=== PATIENT | female | born 1995 | race Caucasian/White ===

== ENCOUNTER → 2020-04-20 08:30 | Outpatient (CLI) | payer OTHER, SELFPAY ==
[2020-04-21 16:14] LABS: Covid-19 Nasal PCR Sendout Lex NOT DETECTED
== END ==
PROVIDERS: PCP Physician Assistant; Visit Provider Internal Medicine Adolescent Medicine
DX: Z03.818 Encounter for observation for suspected exposure to other biological agents ruled out (principal)
CPT/HCPCS: U0004

== ENCOUNTER 2021-01-06 16:41 | Emergency (ER) | payer OTHER, SELFPAY ==
[2021-01-06 16:43] VITALS: BP 132/80; PULSE 58; RESP 19; TEMP 36.9; O2SAT 100; BMI 29.9
[2021-01-06 17:00] VITALS: BP 132/80; PULSE 58; RESP 19; TEMP 36.9; O2SAT 100
[2021-01-06 17:06] LABS: Apearance,Urine Clear (Clear); Bilirubin,Urine Negative (Negative); Blood, Urine Negative (Negative); Color,Urine Yellow (Yellow); Glucose,Urine (UA) Negative (Negative); Ketones,Urine Negative (Negative); Protein,Urine Negative (Negative); UTC Leukocyte Esterase,Urine 2+ (Negative); UTC Nitrate,Urine Negative (Negative); Urobilinogen,Urine 0.2 EU/dl (0.2)
--- NOTE | 2021-01-06 17:42 | HMH.EDUTC ---
[facility] [place] Disposition Clinical Impression: UTI (urinary tract infection) Qualifiers: Urinary tract infection type: site unspecified Hematuria presence: with hematuria Qualified Code(s): N39.0 - Urinary tract infection, site not specified Disposition: Home, Self-Care Condition on Discharge: Good Instructions: Urinary Tract Infection Additional Instructions: Drink plenty of fluids. Take tylenol or ibuprofen for pain or fever. Take the medications as directed. Follow up with your regular doctor. GO TO THE ER FOR ANY WORSENING SYMPTOMS The pyridium will make your urine turn orange, this is an expected side effect. It will stain your clothes if it comes into contact with them. Prescriptions: Ondansetron [Zofran 4mg ODT] 4 mg PO Q8HP PRN #20 tab.rapdis PRN Reason: Nausea Transmission Status: Received by [facility] Sulfamethoxazole/Trimethoprim [Bactrim DS tablet] 1 each PO BID 7 Days #14 tab Transmission Status: Received by [facility] Phenazopyridine HCl [Pyridium 200mg Tablet] 200 pow PO TID #6 tab Transmission Status: Received by [facility] Referrals: Katia White PA [Primary Care Provider] - Time of Disposition: 17:45 Medical Decision Making - Medical Records Medical records reviewed: No: I reviewed the patient's medical records. - Ashwin Inquiry Pt receiving controlled substance: No Vital Signs: 01/06/21 16:43 01/06/21 17:00 Temperature 98.4 F 98.4 F Temperature Source Oral Pulse Rate 58 L Pulse Rate [Left] 58 L Respiratory Rate 19 19 Blood Pressure 132/80 Blood Pressure [Right Arm] 132/80 Blood Pressure Mean [Right Arm] 97 02 Sat by Pulse Oximetry 100 Oxygen Delivery Method Room Air - Lab Data Lab results reviewed: Yes: I reviewed the patient's lab results. Lab Results 01/06/21 16:43: Urine Color Yellow, Urine Appearance Clear, Urine pH 6.0, Ur Specific [place] 1.010, Urine Protein Negative, Urine Glucose (UA) Negative, Urine Ketones Negative, Urine Blood Negative, Urine Nitrate Negative, Urine Bilirubin Negative, Urine Urobilinogen 0.2, Ur Leukocyte Esterase 2+ A Orders (Tests/Meds): ORDERS Category Date Time Status Urine Culture Stat Micro 01/06/21 16:50 Received [facility] [place] HPI - General Stated complaint: uti symtoms Time Seen by Provider: 01/06/21 17:42 Mode of Arrival: Ambulatory Source of Information: Patient Limitations: No Limitations Description of Symptoms (Recalled from Triage Doc. by RN): Possible UTI-Frequent urination x 3 days HEENT Symptoms (Recalled from RN notes): No Resp Symptoms (Recalled from RN notes): No Skin Symptoms (Recalled from RN notes): No MS Symptoms (Recalled from RN notes): No Functional Status (Recalled from RN notes): wnl - History of Present Illness Provider Complaint: She state that she has been having buring with urination and urinary frequency for the past 3 days. - Related Data Previous Rx's Medication Instructions Recorded phentermine 37.5 mg tablet 37.5 mg PO DAILY #30 tab 07/03/20 Ondansetron [Zofran 4mg ODT] 4 mg PO Q8HP PRN #20 tab.rapdis 01/06/21 Phenazopyridine HCl [Pyridium 200 pow PO TID #6 tab 01/06/21 200mg Tablet] Sulfamethoxazole/Trimethoprim 1 each PO BID 7 Days #14 tab 01/06/21 [Bactrim DS tablet] Allergies Allergy/AdvReac Type Severity Reaction Status Date / Time No Known Allergies Allergy Verified 01/06/21 17:00 - Worker's Comp Is this a Worker's Comp case?: No [facility] History - Hepatitis A Screen Drug use history?: No High risk sexual behaviors?: No History of sexually transmitted infection?: No Currently employed?: No Childcare worker?: No Do you have indoor plumbing?: Yes Do you have electricity?: Yes Attestation statement:: This patient has been screened for Hepatitis A risk factors. I have reviewed the patient's past medical history: Yes Medical History: Denies:: Diabetes Mellitus Type 2 Other Surgeries: Yes
== END 2021-01-06 17:50 | disposition home or self-care (01) ==
PROVIDERS: Emergency Provider Nurse Practitioner Family; PCP Physician Assistant
DX: N30.00 Acute cystitis without hematuria (principal)
CPT/HCPCS: 81003; 87086; 99202; G0463

== ENCOUNTER 2021-01-25 09:15 | Emergency (ER) | payer OTHER, SELFPAY ==
[2021-01-25 09:15] VITALS: BP 121/73; PULSE 99; RESP 21; TEMP 37.2; O2SAT 98; BMI 30.2
--- NOTE | 2021-01-25 09:37 | HMH.EDUTC ---
[facility] [place]ression: Strep throat Disposition: Home, Self-Care Condition on Discharge: Good Instructions: Strep Throat, DI for Strep Throat Additional Instructions: Drink plenty of fluids. Take tylenol or ibuprofen for pain or fever. Take the medications as directed. Follow up with your regular doctor. GO TO THE ER FOR ANY WORSENING SYMPTOMS Prescriptions: predniSONE [Deltasone 10mg tablet] 10 mg PO BID 3 Days #6 tab Transmission Status: Received by [id number] Azithromycin [Z-Singh 250mg Tab*] 250 mg PO UD DOSE PK #6 tab Transmission Status: Received by [id number] Referrals: Katia White PA [Primary Care Provider] - Forms: Work/School Release Time of Disposition: 09:45 Medical Decision Making - Medical Records Medical records reviewed: No: I reviewed the patient's medical records. - Ashwin Inquiry Pt receiving controlled substance: No Vital Signs: 01/25/21 09:15 01/25/21 09:49 Temperature 98.9 F 98.9 F Temperature Source Oral Pulse Rate 99 H Pulse Rate [Right Brachial] 99 H Respiratory Rate Blood Pressure 121/73 Blood Pressure [Right Arm] 121/73 Blood Pressure Mean [Right Arm] 89 Blood Pressure Source [Right Arm] Automatic Cuff Blood Pressure Position [Right Arm] Sitting 02 Sat by Pulse Oximetry 98 Oxygen Delivery Method Room Air - Lab Data Lab results reviewed: Yes: I reviewed the patient's lab results. Lab Results 01/25/21 09:49: Strep Scn Rapid Clinic Positive [place] [facility] [place] - General Stated complaint: sore throat, cough, runny nose Time Seen by Provider: 01/25/21 09:38 - History of Present Illness Provider Complaint: She states that for the past 2 days she has had sore throat and body aches. She denies any n/v/d. She denies any cough or chest congestion. - Related Data Previous Rx's Medication Instructions Recorded phentermine 37.5 mg tablet 37.5 mg PO DAILY #30 tab 07/03/20 Ondansetron [Zofran 4mg ODT] 4 mg PO Q8HP PRN #20 tab.rapdis 01/06/21 Phenazopyridine HCl [Pyridium 200 pow PO TID #6 tab 01/06/21 200mg Tablet] Sulfamethoxazole/Trimethoprim 1 each PO BID 7 Days #14 tab 01/06/21 [Bactrim DS tablet] Azithromycin [Z-Singh 250mg Tab*] 250 mg PO UD DOSE PK #6 tab 01/25/21 predniSONE [Deltasone 10mg tablet] 10 mg PO BID 3 Days #6 tab 01/25/21 Allergies Allergy/AdvReac Type Severity Reaction Status Date / Time No Known Allergies Allergy Verified 01/06/21 17:00 [facility] History - Hepatitis A Screen Attestation statement:: This patient has been screened for Hepatitis A risk factors. I have reviewed the patient's past medical history: Yes Medical History: Denies:: Diabetes Mellitus Type 2 Other Surgeries: Yes: No Previous Surgery Amputation: No Fractures: No - Social History Smoking Status: Never smoker Alcohol Intake: never Substance Use Type: denies use Occupational Status: other Housing: house Household Members: family Family Hx:: No significant family history ROS Obtained: Yes All systems reviewed & no additional complaints - Constitutional Constitutional: Reports system reviewed and no additional complaints, except as docu - Eyes Eyes: Denies eye discharge - ENT Ears, Nose, Mouth, and Throat: Reports as per HPI - Cardiovascular Cardiovascular: Denies chest pain - Respiratory Respiratory: Denies chest congestion, Reports cough, Denies stridor, Denies wheezing Physical Exam - General General appearance: alert, in no apparent distress - Head Head exam: atraumatic, normocephalic, normal inspection - Eye Eye exam: Present: normal appearance, PERRL, EOMI - ENT ENT exam: Present: mucous membranes moist, normal external ear exam - Expanded ENT Exam TM/Canal exam: Bilateral TM: erythema, bulging Mouth exam: Present: normal external inspection Teeth exam: Present: normal inspection Throat exam: Present: tonsillar erythema, tonsillomegaly - Ne
[2021-01-25 09:49] VITALS: BP 121/73; PULSE 99; RESP 21; TEMP 37.2; O2SAT 98
[2021-01-25 09:50] LABS: UTC Strep Screen (Rapid) Positive (Negative)
== END 2021-01-25 09:53 | disposition home or self-care (01) ==
PROVIDERS: Emergency Provider Nurse Practitioner Family; PCP Physician Assistant
DX: J02.0 Streptococcal pharyngitis (principal)
CPT/HCPCS: 87880; 99202; G0463

== ENCOUNTER 2021-08-23 16:14 | Emergency (ER) | payer OTHER, SELFPAY ==
[2021-08-23 17:30] VITALS: BP 113/74; PULSE 75; RESP 21; TEMP 36.7; O2SAT 98; BMI 33.4
[2021-08-23 17:41] LABS: UTC Strep Screen (Rapid) Positive (Negative)
--- NOTE | 2021-08-23 18:27 | HMH.EDUTC ---
[facility] [place]: Strep throat Disposition: Home, Self-Care Condition on Discharge: Good Instructions: Strep Throat, DI for Strep Throat Additional Instructions: *Monitor Temp, Over the counter Motrin or Tylenol as directed/as needed Tylenol every 4 hours and Motrin every 6 hours (as long as your family doctor has told you that you can take it) for fever or pain. and straight to ER if unable to lower temp less than 101.0 after medication given *Warm salt water gargles may help to soothe the throat *Throat Lozenges *Warm fluids like tea with honey may help to soothe the throat *Sleep elevated *Humidifier/Vaporizer *If you did not take Penicillin shot or was unable to, start taking antibiotic immediately and make sure that you take it for the FULL length of time although you should start to feel better in 24-48 hours *change toothbrush and toothpaste 24-48 hours after starting to take antibiotics so you do not reinfect yourself Monitor Temp. Tylenol and/or Ibuprofen as needed. ER if fever is no less than 101 despite alternating Tylenol and Ibuprofen * Encourage fluids, water, Gatorade, powerade, pedialyte if infant/toddler/or child *Cold fluids, popsicles and ice cream may feel good on his throat Follow up IMMEDIATELY for new or worsening symptoms or no Noticeable improvement over the next 48-72 hours. 911 for difficulty breathing or swallowing Prescriptions: Amoxicillin [Amoxicillin 500mg Cap] 500 mg PO BID 10 Days #20 cap Transmission Status: Pending to [facility] Referrals: Katia White PA [Primary Care Provider] - As needed Time of Disposition: 18:29 Medical Decision Making - Ashwin Inquiry Pt receiving controlled substance: No Ashwin was queried for this patient: No Vital Signs: 08/23/21 17:30 Temperature 98.0 F Temperature Source Oral Pulse Rate [Right Brachial] 75 Respiratory Rate 21 Blood Pressure [Right Arm] 113/74 Blood Pressure Mean [Right Arm] 87 Blood Pressure Source [Right Arm] Automatic Cuff Blood Pressure Position [Right Arm] Sitting 02 Sat by Pulse Oximetry 98 Oxygen Delivery Method Room Air - Lab Data Lab results reviewed: Yes: I reviewed the patient's lab results. Lab Results 08/23/21 17:34: Strep Scn Rapid Clinic Positive A Medical Decision Narrative: Patient 24wks OB medication discussed with pharmacy and baby safe [facility] [place] - General Stated complaint: sore throat,runny nose henrik Time Seen by Provider: 08/23/21 18:00 Mode of Arrival: Ambulatory Source of Information: Patient Limitations: No Limitations Description of Symptoms (Recalled from Triage Doc. by RN): PATIENT C/O RUNNY NOSE, CONGESTION, AND SORE THROAT X 2 DAYS HEENT Symptoms (Recalled from RN notes): Yes Resp Symptoms (Recalled from RN notes): No Skin Symptoms (Recalled from RN notes): No MS Symptoms (Recalled from RN notes): No Functional Status (Recalled from RN notes): WNL - History of Present Illness Provider Complaint: Patient states that she has not felt well for the last couple of days States that she has been having sore throat, runny nose and cough States that she feels like she may have strep throat - Related Data Previous Rx's Medication Instructions Recorded phentermine 37.5 mg tablet 37.5 mg PO DAILY #30 tab 07/03/20 Ondansetron [Zofran 4mg ODT] 4 mg PO Q8HP PRN #20 tab.rapdis 01/06/21 Phenazopyridine HCl [Pyridium 200 pow PO TID #6 tab 01/06/21 200mg Tablet] Sulfamethoxazole/Trimethoprim 1 each PO BID 7 Days #14 tab 01/06/21 [Bactrim DS tablet] Azithromycin [Z-Singh 250mg Tab*] 250 mg PO UD DOSE PK #6 tab 01/25/21 predniSONE [Deltasone 10mg tablet] 10 mg PO BID 3 Days #6 tab 01/25/21 Amoxicillin [Amoxicillin 500mg 500 mg PO BID 10 Days #20 cap 08/23/21 Cap] Allergies Allergy/AdvReac Type Severity Reaction Status Date / Time No Known Allergies Allergy Verified 01/06/21 17:00 - Worker's Comp Is this a Worker's Comp case?
[2021-08-23 18:34] VITALS: BP 113/74; PULSE 75; RESP 21; TEMP 36.7; O2SAT 98
== END 2021-08-23 18:41 | disposition home or self-care (01) ==
PROVIDERS: Emergency Provider Nurse Practitioner; PCP Physician Assistant
DX: J02.0 Streptococcal pharyngitis (principal)
CPT/HCPCS: 87880; 99202; G0463

== ENCOUNTER → 2021-09-16 19:16 | Outpatient (CLI) | payer OTHER, BC, SELFPAY ==
[2021-09-16 19:19] LABS: Adenovirus,PCR Not Detected (NotDetected); Bordetella Pertussis Not Detected (NotDetected); Chlamydophila Pneumoniae, PCR Not Detected (NotDetected); Coronavirus 229E Not Detected (NotDetected); Coronavirus NL63 Not Detected (NotDetected); Coronavirus OC43 Not Detected (NotDetected); Coronovirus HKU1,PCR Not Detected (NotDetected); Human Metapneumovirus Not Detected (NotDetected); Influenza A, PCR Not Detected (NotDetected); Influenza AH1, 2009 Not Detected (NotDetected); Influenza AH1, PCR Not Detected (NotDetected); Influenza AH3,PCR Not Detected (NotDetected); Influenza B, PCR Not Detected (NotDetected); Mycoplasma Pneumoniae, PCR Not Detected (NotDetected); Parainfluenza 1, PCR Not Detected (NotDetected); Parainfluenza 2, PCR Not Detected (NotDetected); Parainfluenza 3, PCR Not Detected (NotDetected); Parainfluenza 4, PCR Not Detected (NotDetected); Respiratory Syncytial Virus Not Detected (NotDetected); Rhinovirus/Enterovirus Not Detected (NotDetected)
[2021-09-16 23:30] LABS: Coronavirus 19, PCR Detected (NotDetected)
== END ==
PROVIDERS: Visit Provider Nurse Practitioner Family
DX: U07.1 COVID-19 (principal); J02.9 Acute pharyngitis, unspecified
CPT/HCPCS: 87581; 87632; 87798; C9803; U0003; U0005

== ENCOUNTER 2023-02-07 12:32 | Emergency (ER) | payer BC, SELFPAY ==
[2023-02-07 12:32] VITALS: BP 148/89; PULSE 91; RESP 16; TEMP 36.7; O2SAT 100; BMI 30.7
--- NOTE | 2023-02-07 12:44 | EXP.UTC ---
Discharge Plan Disposition Patient Disposition: Home, Self-Care Condition: Good Prescriptions Prescriptions: New phenazopyridine [Pyridium] 200 mg tablet 200 mg PO Q8H 2 Days Qty: 6 0RF sulfamethoxazole-trimethoprim [Bactrim DS] 800-160 mg Tablet 1 tab PO BID Qty: 14 0RF Referrals Follow up/Referrals: Katia White PA [Primary Care Provider] - See instructions Activity Restrictions/Add. Instructions Additional Instructions/Restrictions: Drink plenty of fluids. Take tylenol or ibuprofen for pain or fever. Take the medications as directed. Follow up with your regular doctor. GO TO THE ER FOR ANY WORSENING SYMPTOMS The pyridium will make your urine turn orange, this is an expected side effect. It will stain your clothes if it comes into contact with them. We will culture the urine. That will tell what bacteria is causing your infection and which antibiotics will treat it best. Sometimes the first antibiotic we prescribe turns out to not work against different bacteria. So, make sure you follow up within 3 days if you are not getting better. Clinical Impressions Clinical Impression: UTI (urinary tract infection) Instructions Patient Instructions: Urine Culture, DI for Urinary Tract Infection (UTI), Phenazopyridine Discharge ED Provider: Carlos Alberto Prince [facility] General Stated complaint: possible UTI Time Seen by Provider: 02/07/23 12:44 Related Data Previous Rx's Medication Instructions Recorded phenazopyridine 200 mg tablet 200 mg PO Q8H 2 days #6 tabs 02/07/23 (Pyridium) sulfamethoxazole 800 1 tab PO BID #14 tabs 02/07/23 mg-trimethoprim 160 mg tablet (Bactrim DS) Allergies Allergy/AdvReac Type Severity Reaction Status Date / Time No Known Allergies Allergy Verified 09/16/21 13:21 [facility] Disclaimer: The information contained in this section may have been updated after the patient was seen, as this information can be updated by other users. Social History Smoking Status: Never smoker second hand exposure: No alcohol intake: never substance use type: denies use current occupational status: other Travel in the last 8 weeks: None household members: family housing: house ROS Obtained: Yes All systems reviewed & no additional complaints except as documented Constitutional Constitutional: Reports system reviewed and no additional complaints, except as documented, Denies chills and Denies fever(s) Eyes Eyes: Denies eye discharge ENT Ears, Nose, Mouth, and Throat: Denies dysphagia, Denies sore throat and Denies throat swelling Cardiovascular Cardiovascular: Denies chest pain and Denies dyspnea Respiratory Respiratory: Denies chest congestion, Denies cough and Denies dyspnea Gastrointestinal Gastrointestingal: Denies abdominal pain, constipation, diarrhea, dysphagia, nausea or vomiting Genitourinary Female Genitourinary: Reports as per HPI, Reports dysuria, Reports sexual dysfunction, Reports urinary frequency, Denies urinary incontinence and Reports urinary hesitancy Musculoskeletal Musculoskeletal: Denies arthralgias and Reports back pain Integumentary/Breasts Skin/Breast: Denies rash Neurologic Neurologic: Denies paresthesias Allergic/Immunologic Allergic/Immunologic: Denies throat swelling Physical Exam General General appearance: alert and in no apparent distress Head Head exam: atraumatic and normocephalic Eye Eye exam: Present normal appearance, PERRL and EOMI ENT ENT exam: Present normal exam, mucous membranes moist, TM's normal bilaterally and normal external ear exam Neck Neck exam: Present normal inspection, full ROM and trachea midline; Absent tenderness, meningismus or lymphadenopathy Chest Chest inspection: Present normal inspection and symmetric chest wall rise; Absent tenderness Respiratory Respiratory exam: Present normal lung sounds bilaterally; Absent respiratory di
[2023-02-07 12:45] LABS: Apearance,Urine Cloudy (Clear); Blood, Urine 3+ (Negative); Color,Urine Dark Yellow (Yellow); Glucose,Urine (UA) Negative (Negative); Ketones,Urine Negative (Negative); Protein,Urine 1+ (Negative)
[2023-02-07 12:46] LABS: Bilirubin,Urine Negative (Negative); UTC Leukocyte Esterase,Urine 1+ (Negative); UTC Nitrate,Urine Negative (Negative); Urobilinogen,Urine 2 EU/dl (0.2)
[2023-02-07 13:05] VITALS: BP 148/89; PULSE 91; RESP 16; TEMP 36.7; O2SAT 100
== END 2023-02-07 13:06 | disposition home or self-care (01) ==
PROVIDERS: Emergency Provider Nurse Practitioner Family; PCP Physician Assistant
DX: N39.0 Urinary tract infection, site not specified (principal); B96.29 Other Escherichia coli [E. coli] as the cause of diseases classified elsewhere
CPT/HCPCS: 81003; 87086; 87186; 99212; 99214; G0463

== ENCOUNTER 2023-10-05 00:11 | Emergency (ER) | payer BC, SELFPAY ==
--- NOTE | 2023-10-05 00:10 | ECG_ITS ---
APPROVED REPORT Exam: Resting ECG HR:96 bpm ECG Measurements Heart Rate 96 AXES VA 155 P 59 QRSd 102 QRS 99 QT 347 T 39 QTc 401 Conclusion SINUS RHYTHM BORDERLINE RIGHT AXIS DEVIATION [QRS AXIS > 90] BORDERLINE ECG UNCONFIRMED REPORT Electronically signed by : Mg Sanchez MD 10/07/2023 06:38:34
[2023-10-05 00:12] VITALS: BP 154/96; PULSE 92; RESP 17; TEMP 36.8; O2SAT 100; BMI 30.3
--- NOTE | 2023-10-05 00:15 | PC.NURSE ---
in room talking with patient at this time.
--- NOTE | 2023-10-05 00:23 | ED_ITS ---
Discharge Plan Disposition Patient Disposition: Home, Self-Care Prescriptions Prescriptions: No Action phenazopyridine [Pyridium] 200 mg tablet 200 mg PO Q8H 2 Days Qty: 6 0RF sulfamethoxazole-trimethoprim [Bactrim DS] 800-160 mg Tablet 1 tab PO BID Qty: 14 0RF Referrals Follow up/Referrals: Provider,Referral, [Primary Care Provider] - See instructions Activity Restrictions/Add. Instructions Additional Instructions/Restrictions: Please follow-up with your primary care provider. Please return to the emergency department if you develop any new or worsening symptoms or become concerned for your health. Clinical Impressions Clinical Impression: Hand tingling Discharge ED Provider: Vahe Bennett General Adult HPI General Chief complaint: Chest Pain Stated complaint: chest pain Time Seen by Provider: 10/05/23 00:14 History of Present Illness HPI narrative: 27-year-old female with no reported past medical history presents with multiple complaints. She reports she was lying in bed praying when she suddenly began to feel like she was going to pass . When asked to describe what she meant, she says that she felt like she was going to , not because of anything physically necessarily, but more on a psychological level. Around the same time she began to develop chest pain, mild dizziness, and generalized tingling. repor ts that she looked very anxious at the time. Patient reports she has no history of anxiety or panic disorder. She is not on any contraceptives but has had a vasectomy. She reports that she still has a little bit of left upper chest discomfort. She denies any recent fever or or illness. Related Data Previous Rx's Medication Instructions Recorded phenazopyridine 200 mg tablet 200 mg PO Q8H 2 days #6 tabs 02/07/23 (Pyridium) sulfamethoxazole 800 1 tab PO BID #14 tabs 02/07/23 mg-trimethoprim 160 mg tablet (Bactrim DS) Allergies Allergy/AdvReac Type Severity Reaction Status Date / Time No Known Allergies Allergy Verified 09/16/21 13:21 [facility] Disclaimer: The information contained in this section may have been updated after the patient was seen, as this information can be updated by other users. Social History Smoking Status: Never smoker second hand exposure: No alcohol intake: never substance use type: denies use current occupational status: other Travel in the last 8 weeks: None household members: family housing: house ROS Obtained: Yes All systems reviewed & no additional complaints except as documented Physical Exam General General appearance: alert and in no apparent distress Head Head exam: atraumatic and normocephalic Eye Eye exam: Present normal appearance, PERRL and EOMI ENT ENT exam: Present normal oropharynx and normal external ear exam Neck Neck exam: Present normal inspection and full ROM Chest Chest inspection: Present normal inspection and symmetric chest wall rise; Absent tenderness Respiratory Respiratory exam: Present normal lung sounds bilaterally; Absent respiratory distress Cardiovascular Cardiovascular exam: Present regular rate and normal rhythm Abdominal Exam Abdominal exam: Present soft; Absent distention, tenderness or guarding Extremities Exam Extremities exam: Present normal inspection; Absent edema or joint swelling Back Exam Back exam: Present normal inspection; Absent tenderness Neurological Exam Neurological exam: Present alert and oriented X3; Absent motor sensory deficit Psychiatric Psychiatric exam: Present normal affect and normal mood Skin Skin exam: Present warm, dry and normal color Lymphatic Lymphatic Findings: no adenopathy Medical Decision Making Medical Records Medical records reviewed: Yes I reviewed the patient's medical records. Ashwin Inquiry Pt receiving controlled substance: No Ashwin was queried for this patient: No Vital Signs: 10/05/23 00:12 10/05/23 00:24 Temperature 98.2 F Temperature Source Oral Pulse Rate 88 Pulse Rate [Left Radial] 92 H Respiratory Rate 17 Blood Pressure [Right Arm] 154/96 H Blood Pressure Mean [Right Arm] 115 Blood Pressure Source [Right Arm] Automatic Cuff Blood Pressure Position [Right Arm] Sitting 02 Sat by Pulse Oximetry 100 Oxygen Delivery Method Room Air Lab Data Lab results reviewed: Yes I reviewed the patient's lab results. Lab Results 10/05/23 00:14: WBC 10.4, RBC 4.63, Hgb 14.3, Hct 42.9, MCV 92.6, MCH 30.8, MCHC 33.3, RDW 13.0, Plt Count 257, MPV 8.6, Neut % (Auto) 55.3, Lymph % (Auto) 37.0, [place] % (Auto) 4.6, Eos % (Auto) 2.1, Baso % (Auto) 1.1, Neut # (Auto) 5.7, Lymph # (Auto) 3.8, [place] # (Auto) 0.5, Eos # (Auto) 0.2, Baso # (Auto) 0.1, Sodium 140, Potassium 3.3 L, Chloride 106, Carbon Dioxide 28, Anion Gap 9.3, BUN 11, Creatinine 0.90, Estimated Creat Clear 124, Estimated GFR 74, Est GFR ( Amer) 90, Glucose 129 H, Calcium 9.3, Total Bilirubin 0.3, AST 30, ALT 24, Alkaline Phosphatase 93, Total Protein 7.5, Albumin 4.4, Globulin 3.1, Albumin/Globulin Ratio 1.4, TSH 6.78 H, Thyroxine (T4) 9.9, Serum HCG, Qual Negative 10/05/23 00:14 10/05/23 00:14 Orders (Tests/Meds): ORDERS Category Date Time Status CBC w/Auto Diff [Complete Blood Count Auto Diff] Stat Lab 10/05/23 00:14 Completed CMP [Comprehensive Metabolic Panel] Stat Lab 10/05/23 00:14 Completed HCG Qualitative, Serum Stat Lab 10/05/23 00:14 Completed T4 (Thyroxine) Stat Lab 10/05/23 00:14 Completed TSH [Thyroid Stimulating Hormone] Stat Lab 10/05/23 00:14 Completed ECG Data Tracing #1: I reviewed this ECG and interpreted as documented below: Sinus rhythm, rate of 96, no concerning ST changes, no evidence of arrhythmia ECG initial impression date: 10/05/23 ECG initial impression time: 00:11 Medical Decision Narrative: 27-year-old female without significant past medical history presents with multiple complaints, the majority of which have resolved by the time of arrival to ED. See HPI for details.. History was obtained via conversation with patient, . On arrival, patient is [afebrile, hemodynamically stable, satting appropriately, alert, oriented x4, GCS 15], moving all extremities spontaneously. Full physical exam performed and significant for no significant physical exam abnormalities. History is not consistent with [place]. Patient is PERC negative for PE. Does not sound consistent with seizure, stroke, or other serious neurologic condition. Anxiety attack is possible, but patient reports no acute stressors and no history of anxiety or panic disorder. I discussed with patient, I have no significant concern for emergent pathology at this time. Basic labs ordered including test. On my interpretation of labs, they show no significant abnormalities, does show minimal hypokalemia and minimally elevated TSH with normal T4. On my interpretation of quality assurance monitor final, patient remains in sinus rhythm with rate in the 80s. Troponin, aspirin and chest x-ray were considered but deemed unnecessary given history and presentation. Patient was discharged in stable condition with return precautions. Procedures Risk/Benefits of Procedure(s) Were Explained: Yes Critical Care Critical Care Time Critical Care Time: No
[2023-10-05 00:24] VITALS: PULSE 88
[2023-10-05 00:30] LABS: Basophils # 0.1 K/mm3 (0-0.2); Basophils % 1.1 % (0.1-2.0); Eosinophils # 0.2 K/mm3 (0.0-0.4); Eosinophils % 2.1 % (0.1-12.0); Hematocrit 42.9 % (37.0-47.0); Hemoglobin 14.3 g/dL (12.2-16.2); Lymphocytes # 3.8 K/mm3 (0.7-4.5); Mean Corpuscular HGB Conc 33.3 g/dL (31.8-35.4); Mean Corpuscular Hemoglobin 30.8 pg (27.0-31.2); Mean Corpuscular Volume 92.6 fl (81-99); Mean Platelet Volume 8.6 fl (7.4-10.4); Monocytes # 0.5 K/mm3 (0.1-1.0); Monocytes % 4.6 % (1.7-9.3); Neutrophils # 5.7 K/mm3 (1.8-7.8); Neutrophils % 55.3 % (37.0-80.0); Platelet Count 257 K/mm3 (142-424); Red Blood Count 4.63 M/mm3 (4.20-5.40); White Blood Count 10.4 K/mm3 (4.8-10.8)
[2023-10-05 00:31] VITALS: BP 114/72; PULSE 82; RESP 15; O2SAT 100
[2023-10-05 00:34] LABS: Alanine Aminotransferase 24 U/L (12-78); Albumin Level 4.4 g/dl (3.5-5.0); Albumin/Globulin Ratio 1.4 (1.1-1.8); Alkaline Phosphatase 93 U/L (38-126); Anion Gap 9.3 mEq/L (5-15); Aspartate Amino Transferase 30 U/L (14-36); Bilirubin,Total 0.3 mg/dl (0.2-1.3); Blood Urea Nitrogen 11 mg/dl (7-17); Calcium 9.3 mg/dl (8.4-10.2); Carbon Dioxide 28 mmol/L (22.0-30.0); Chloride 106 mmol/L (98-107); Creatinine Clearance Estimated 124 mL/min (50-200); Estimated Glomerular Filt Rate 74 ml/min (>60); GFR (African American) 90 ML/MIN (>60); Globulin 3.1 g/dL (1.3-3.2); Glucose 129 mg/dl (74-100); Potassium 3.3 mmoL/L (3.5-5.1); Sodium 140 mmol/L (136-145); Total Protein,Serum 7.5 g/dl (6.3-8.2)
[2023-10-05 00:39] LABS: HCG Qualitative, Serum Negative (Negative)
[2023-10-05 00:52] LABS: T4 (Thyroxine) 9.9 ug/dl (5.53-11.0)
--- NOTE | 2023-10-05 00:59 | PC.NURSE ---
rounded on patient, no needs voiced at this time.
[2023-10-05 01:00] VITALS: BP 122/66; PULSE 84; RESP 14; O2SAT 98
[2023-10-05 01:05] LABS: Thyroid Stimulating Hormone 6.78 uIU/mL (0.465-4.68)
[2023-10-05 01:25] VITALS: BP 122/66; PULSE 79; RESP 16; TEMP 36.7; O2SAT 98
== END 2023-10-05 01:27 | disposition home or self-care (01) ==
PROVIDERS: Emergency Provider Emergency Medicine
DX: R07.9 Chest pain, unspecified (principal); R42 Dizziness and giddiness; R20.2 Paresthesia of skin
CPT/HCPCS: 80053; 84436; 84443; 84703; 85025; 93005; 99285

== ENCOUNTER 2024-04-12 12:24 | Outpatient (CLI) | payer BC, SELFPAY ==
--- NOTE | 2024-04-12 12:28 | XR_ITS ---
FINAL REPORT CLINICAL HISTORY: BRONCHITIS COMPARISON: None FINDINGS: Two views of the chest were obtained. The heart size and pulmonary vascularity are within normal limits. The mediastinum is normal. Left upper lobe opacity is favored to represent atelectasis over pneumonia.. There is no pneumothorax. The bony thorax is intact. IMPRESSION: Left upper lobe opacity favors atelectasis over pneumonia. Reviewed, Interpreted and Dictated by Evelio Mccain III, MD Transcribed by Kenzie Brown Authenticated and . [facility]
== END 2024-04-12 23:59 | disposition home or self-care (01) ==
LOC: RAD 12:25
PROVIDERS: PCP Physician Assistant; Visit Provider Physician Assistant
DX: J40 Bronchitis, not specified as acute or chronic (principal)
CPT/HCPCS: 71046